=== PATIENT | female | born 1965 | race Caucasian/White ===

== ENCOUNTER 2021-01-11 16:21 | Emergency (ER) | payer MEDICAID ==
[2021-01-11] MEDS ORDERED: Ketorolac Tromethamine 30 MG/ML VIAL ONE (17:06)
== END 2021-01-11 17:30 | disposition home or self-care (01) ==
LOC: ERS 16:21 → EDBD 16:21 → ERS 17:30
DX: M72.2 Plantar fascial fibromatosis (principal); I10 Essential (primary) hypertension; K21.9 Gastro-esophageal reflux disease without esophagitis; Z87.19 Personal history of other diseases of the digestive system; Z79.899 Other long term (current) drug therapy
CPT/HCPCS: 96372; 99283; J1885

== ENCOUNTER 2021-05-04 13:20 | Outpatient (CLI) | payer BC | END 2021-05-04 13:21 | disposition home or self-care (01) | LOC: BICULT 13:20 | PROVIDERS: ATTEND Physician Assistant | DX: E03.9 Hypothyroidism, unspecified (principal); M79.605 Pain in left leg; E04.1 Nontoxic single thyroid nodule | CPT/HCPCS: 76536 ==

== ENCOUNTER 2021-05-23 02:57 | Inpatient (IN) | payer BC ==
[2021-05-23] MEDS ORDERED: Norepinephrine 8 MG/0.9% NS 250 ML IVPB PRN (03:54)
[2021-05-23] MEDS ORDERED: Enoxaparin Sodium 40 MG/0.4 ML SYRINGE SC SCH (04:15)
[2021-05-23] MEDS: Sodium Bicarbonate 150 MEQ in Dextrose 5% in Water 1,000 ML IV SCH ×2 (04:17→17:09)
[2021-05-23 04:50] LABS: Hemoglobin 10.5 g/dL (12.0-16.0); Mean Corpuscular HGB CONC 32.7 g/dL (32.0-36.0); Mean Corpuscular Hemoglobin 31.9 pg (27.0-31.0); Mean Corpuscular Volume 97.8 fL (78.0-98.0); RBC Distribution Width 11.7 % (11.5-14.5); Red Blood Cell (RBC) Count 3.29 mill/uL (4.20-5.40); White Blood Cell (WBC) Count 24.3 thou/uL (4.8-10.8)
[2021-05-23 05:04] LABS: ALT (SGPT) 192 U/L (8-55); AST (SGOT) 574 U/L (5-34); Albumin 2.5 g/dL (3.5-5.0); Alkaline Phosphatase 70 U/L (40-110); Anion Gap 14 mmol/L (10-20); BUN (Urea Nitrogen) 40 mg/dL (9.8-20.1); Bilirubin, Total 0.4 mg/dL (0.2-1.2); Calc. Creatinine Clearance 34 mL/min (70-130); Carbon Dioxide 15 mmol/L (22-29); Chloride 112 mmol/L (98-107); Globulin 2.1 g/dL (2.4-3.5); Glucose 130 mg/dL (70-105); Potassium 4.5 mmol/L (3.5-5.1); Protein, Total 4.6 g/dL (6.0-8.3); Sodium 136 mmol/L (136-145)
[2021-05-23 05:06] LABS: Band 17 % (5-11); Lymphocytes 2 % (21-51); MDiff Complete? YES; Mean Platelet Volume 7.8 fL (7.4-10.4); Neutrophil 81 % (42-75); Platelet Count 103 thou/uL (130-400); Platelet Morphology Comment Appears Decreased
[2021-05-23 05:18] LABS: Calcium 4.6 mg/dL (7.8-10.44)
[2021-05-23] MEDS ORDERED: Calcium Gluc 4.6 MEQ/10 ML (100 MG/ML) SLOW IVP SCH (05:45)
[2021-05-23 06:37] LABS: SARS-CoV-2 NAA Rapid Test Not Detected (NotDetected)
[2021-05-23] MEDS ORDERED: Fentanyl 100 MCG/2 ML VIAL SLOW IVP PRN (08:06)
[2021-05-23] MEDS ORDERED: Lactated Ringer's 1,000 ML IV SCH ×2 (08:15→13:00)
[2021-05-23] MEDS ORDERED: Vancomycin HCl 1.5 GM in Premix Bag 1 BAG IVPB SCH (08:15)
[2021-05-23] MEDS ORDERED: Pantoprazole 40 MG VIAL IVP SCH (09:00)
[2021-05-23] MEDS: Fentanyl 100 MCG/2 ML VIAL SLOW IVP PRN ×4 (09:01→22:12)
[2021-05-23 09:13] LABS: Vancomycin, Random 18.2 ug/mL (See Comment)
[2021-05-23] MEDS: Ondansetron PF 4 MG/2 ML Vial IVP PRN ×2 (09:39→20:31)
[2021-05-23] MEDS: Meropenem 500 MG in Sodium Chloride 0.9% 100 ML IVPB SCH ×2 (09:45→20:41)
[2021-05-23 10:01] LABS: Anion Gap 15 mmol/L (10-20); BUN (Urea Nitrogen) 39 mg/dL (9.8-20.1); Calc. Creatinine Clearance 36 mL/min (70-130); Carbon Dioxide 15 mmol/L (22-29); Chloride 112 mmol/L (98-107); Glucose 106 mg/dL (70-105); Potassium 4.5 mmol/L (3.5-5.1); Sodium 137 mmol/L (136-145)
[2021-05-23 10:16] LABS: Calcium 4.8 mg/dL (7.8-10.44)
[2021-05-23] MEDS ORDERED: Lorazepam 2 MG/ML VIAL IM PRN (10:40)
[2021-05-23] MEDS ORDERED: Electrolyte Replacement Protocol 1 EACH FS SCH (10:45)
[2021-05-23] MEDS ORDERED: Electrolyte Replacement Protocol FS PRN (11:45)
[2021-05-23] MEDS: Thiamine HCl 200 MG/2 ML VIAL SLOW IVP SCH (12:59)
[2021-05-23] MEDS: Lorazepam 1 MG TAB PO PRN ×2 (16:57→23:52)
[2021-05-23] MEDS: Heparin 5,000 UNITS/ML VIAL SC SCH (20:35)
[2021-05-23 23:37] LABS: Vancomycin, Random 12.7 ug/mL (See Comment)
[2021-05-24] MEDS ORDERED: Vancomycin 1 GM in Premix Bag 1 BAG IVPB SCH (01:00)
[2021-05-24] MEDS: Sodium Bicarbonate 150 MEQ in Dextrose 5% in Water 1,000 ML IV SCH (03:30)
[2021-05-24 05:13] LABS: #Eosinphils 0.2 thou/uL (0.0-0.7); #Lymphocytes 1.8 thou/uL (1.20-3.40); #Monocytes 0.7 thou/uL (0.11-0.59); #Neutrophils 13.5 thou/uL (1.40-6.50); %Eosinophils 1.3 % (0.0-10.0); %Lymphocytes 10.9 % (21.0-51.0); %Monocytes 4.1 % (0.0-10.0); %Neutrophils 83.8 % (42.0-75.0); Hemoglobin 9.5 g/dL (12.0-16.0); Mean Corpuscular HGB CONC 32.5 g/dL (32.0-36.0); Mean Corpuscular Hemoglobin 31.4 pg (27.0-31.0); Mean Corpuscular Volume 96.5 fL (78.0-98.0); Mean Platelet Volume 8.3 fL (7.4-10.4); Platelet Count 85 thou/uL (130-400); RBC Distribution Width 11.9 % (11.5-14.5); Red Blood Cell (RBC) Count 3.02 mill/uL (4.20-5.40); White Blood Cell (WBC) Count 16.1 thou/uL (4.8-10.8)
[2021-05-24] MEDS: Fentanyl 100 MCG/2 ML VIAL SLOW IVP PRN ×3 (05:30→16:15)
[2021-05-24 05:35] LABS: ALT (SGPT) 106 U/L (8-55); AST (SGOT) 125 U/L (5-34); Albumin 2.4 g/dL (3.5-5.0); Alkaline Phosphatase 67 U/L (40-110); Anion Gap 11 mmol/L (10-20); BUN (Urea Nitrogen) 32 mg/dL (9.8-20.1); Bilirubin, Total 0.5 mg/dL (0.2-1.2); Calc. Creatinine Clearance 51 mL/min (70-130); Carbon Dioxide 23 mmol/L (22-29); Chloride 107 mmol/L (98-107); Globulin 2.2 g/dL (2.4-3.5); Glucose 146 mg/dL (70-105); Potassium 3.3 mmol/L (3.5-5.1); Protein, Total 4.6 g/dL (6.0-8.3); Sodium 138 mmol/L (136-145)
[2021-05-24 05:39] LABS: Calcium 4.8 mg/dL (7.8-10.44)
[2021-05-24] MEDS ORDERED: Calcium Gluc 4.6 MEQ/10 ML (100 MG/ML) SLOW IVP SCH (07:00)
[2021-05-24 08:06] LABS: Acetaminophen Less than 6.0 mcg/mL (10.0-30.0); Alcohol Less than 10 mg/dL (Less than 10); Salicylate Less than 8.0 mg/dL (15.0-30.0)
[2021-05-24] MEDS: Cholecalciferol (Vitamin D3) 400 UNITS TAB PO SCH (08:26)
[2021-05-24] MEDS: Meropenem 500 MG in Sodium Chloride 0.9% 100 ML IVPB SCH (08:26)
[2021-05-24] MEDS: Heparin 5,000 UNITS/ML VIAL SC SCH ×2 (08:26→21:59)
[2021-05-24] MEDS: Folic Acid 1 MG TAB PO SCH (08:26)
[2021-05-24] MEDS: Multivit, Therapeutic 1 TAB PO SCH (08:26)
[2021-05-24] MEDS: Thiamine HCl 200 MG/2 ML VIAL SLOW IVP SCH (08:28)
[2021-05-24] MEDS ORDERED: Pantoprazole 40 MG VIAL IVP SCH (09:00)
[2021-05-24] MEDS: Ondansetron PF 4 MG/2 ML Vial IVP PRN ×2 (09:05→13:59)
[2021-05-24 10:24] LABS: Amphetamine Not Detected (NotDetected); Barbiturates Screen Not Detected (NotDetected); Benzodiazepine Screen Detected (NotDetected); Cocaine Metabolite Screen Not Detected (NotDetected); Methadone Not Detected (NotDetected); Methamphetamine Not Detected (NotDetected); Opiate Screen Detected (NotDetected); Oxycodone Screen Not Detected (NotDetected); Phencyclidine (PCP) Not Detected (NotDetected); THC/Cannabinoid Screen Not Detected (NotDetected); Tricyclic Screen Not Detected (NotDetected)
[2021-05-24] MEDS: Lorazepam 1 MG TAB PO PRN (14:10)
[2021-05-24] MEDS: Dextrose 5 %-0.45 % NaCl 1,000 ML IV SCH (16:17)
[2021-05-24] MEDS: Meropenem 1 GM in Sodium Chloride 0.9% 100 ML IVPB SCH (21:22)
[2021-05-25 00:48] LABS: Vancomycin, Random 13.1 ug/mL (See Comment)
[2021-05-25] MEDS: Dextrose 5 %-0.45 % NaCl 1,000 ML IV SCH ×3 (01:47→21:02)
[2021-05-25] MEDS: Lorazepam 1 MG TAB PO PRN (01:47)
[2021-05-25] MEDS: Vancomycin 1 GM in Premix Bag 1 BAG IVPB SCH (03:27)
[2021-05-25 07:06] LABS: Hemoglobin 8.8 g/dL (12.0-16.0); Mean Corpuscular HGB CONC 33.1 g/dL (32.0-36.0); Mean Corpuscular Hemoglobin 31.6 pg (27.0-31.0); Mean Corpuscular Volume 95.4 fL (78.0-98.0); Mean Platelet Volume 8.5 fL (7.4-10.4); Platelet Count 92 thou/uL (130-400); RBC Distribution Width 11.8 % (11.5-14.5); Red Blood Cell (RBC) Count 2.79 mill/uL (4.20-5.40); White Blood Cell (WBC) Count 9.8 thou/uL (4.8-10.8)
[2021-05-25 07:20] LABS: ALT (SGPT) 71 U/L (8-55); AST (SGOT) 69 U/L (5-34); Albumin 2.3 g/dL (3.5-5.0); Alkaline Phosphatase 79 U/L (40-110); Anion Gap 9 mmol/L (10-20); BUN (Urea Nitrogen) 21 mg/dL (9.8-20.1); Bilirubin, Total 0.5 mg/dL (0.2-1.2); Calc. Creatinine Clearance 77 mL/min (70-130); Carbon Dioxide 26 mmol/L (22-29); Chloride 108 mmol/L (98-107); Globulin 2.1 g/dL (2.4-3.5); Glucose 100 mg/dL (70-105); Protein, Total 4.4 g/dL (6.0-8.3); Sodium 140 mmol/L (136-145)
[2021-05-25 07:33] LABS: Calcium 4.9 mg/dL (7.8-10.44); Potassium 2.8 mmol/L (3.5-5.1)
[2021-05-25 09:39] LABS: Band 12 % (5-11); Eosinophils 1 % (0-10); Lymphocytes 20 % (21-51); MDiff Complete? YES; Monocytes 3 % (0-10); Neutrophil 64 % (42-75); Platelet Morphology Comment Appears Decreased; Polychromasia SLIGHT = 2-3 cells (100X) (0-2/hpf)
[2021-05-25] MEDS: Cholecalciferol (Vitamin D3) 400 UNITS TAB PO SCH (09:46)
[2021-05-25] MEDS: Folic Acid 1 MG TAB PO SCH (09:46)
[2021-05-25] MEDS: Meropenem 1 GM in Sodium Chloride 0.9% 100 ML IVPB SCH ×2 (09:46→17:18)
[2021-05-25] MEDS: Multivit, Therapeutic 1 TAB PO SCH (09:46)
[2021-05-25] MEDS: Heparin 5,000 UNITS/ML VIAL SC SCH ×2 (10:36→21:02)
[2021-05-25] MEDS ORDERED: Lorazepam 1 MG TAB PO PRN (10:40)
[2021-05-25] MEDS: Fentanyl 100 MCG/2 ML VIAL SLOW IVP PRN ×2 (10:44→17:19)
[2021-05-25] MEDS ORDERED: Potassium Chloride 40 MEQ in Sodium Chloride 0.9% 250 ML 250 ML IVPB SCH (12:00)
[2021-05-25] MEDS: Thiamine HCl 200 MG/2 ML VIAL SLOW IVP SCH (12:10)
[2021-05-25] MEDS ORDERED: Calcium Gluconate 4.6 MEQ in Sodium Chloride 0.9% 100 ML IVPB SCH (13:14)
[2021-05-25] MEDS: Ondansetron PF 4 MG/2 ML Vial IVP PRN (14:29)
[2021-05-25] MEDS: Potassium Chloride 20 MEQ TAB PO SCH ×2 (14:30→21:02)
[2021-05-26] MEDS: Potassium Chloride 20 MEQ TAB PO SCH (00:20)
[2021-05-26] MEDS: Meropenem 1 GM in Sodium Chloride 0.9% 100 ML IVPB SCH ×3 (00:20→16:49)
[2021-05-26] MEDS: Vancomycin 1 GM in Premix Bag 1 BAG IVPB SCH (02:53)
[2021-05-26] MEDS: Fentanyl 100 MCG/2 ML VIAL SLOW IVP PRN ×2 (04:03→18:43)
[2021-05-26 06:08] LABS: Phosphorus 1.2 mg/dL (2.3-4.7)
[2021-05-26 06:10] LABS: Mean Corpuscular HGB CONC 33.6 g/dL (32.0-36.0); Mean Corpuscular Hemoglobin 32.3 pg (27.0-31.0); Mean Corpuscular Volume 96.2 fL (78.0-98.0); Mean Platelet Volume 7.9 fL (7.4-10.4); Platelet Count 105 thou/uL (130-400); RBC Distribution Width 11.9 % (11.5-14.5); Red Blood Cell (RBC) Count 2.79 mill/uL (4.20-5.40); White Blood Cell (WBC) Count 6.8 thou/uL (4.8-10.8)
[2021-05-26 06:14] LABS: ALT (SGPT) 65 U/L (8-55); AST (SGOT) 77 U/L (5-34); Albumin 2.3 g/dL (3.5-5.0); Alkaline Phosphatase 101 U/L (40-110); Anion Gap 9 mmol/L (10-20); BUN (Urea Nitrogen) 13 mg/dL (9.8-20.1); Bilirubin, Total 0.7 mg/dL (0.2-1.2); Calc. Creatinine Clearance 93 mL/min (70-130); Carbon Dioxide 26 mmol/L (22-29); Chloride 109 mmol/L (98-107); Globulin 2.1 g/dL (2.4-3.5); Glucose 110 mg/dL (70-105); Magnesium 1.4 mg/dL (1.6-2.6); Potassium 3.6 mmol/L (3.5-5.1); Protein, Total 4.4 g/dL (6.0-8.3); Sodium 140 mmol/L (136-145)
[2021-05-26 06:19] LABS: Calcium 5.4 mg/dL (7.8-10.44)
[2021-05-26] MEDS ORDERED: Electrolyte Replacement Protocol FS PRN (07:00)
[2021-05-26] MEDS ORDERED: Magnesium Sulfate 4 GM in Sodium Chloride 0.9% 250 ML 250 ML IVPB SCH (08:00)
[2021-05-26] MEDS: Multivit, Therapeutic 1 TAB PO SCH (08:52)
[2021-05-26] MEDS: PHOS-NAK 1 PKT PACK PO SCH ×4 (08:52→20:50)
[2021-05-26] MEDS: Dextrose 5 %-0.45 % NaCl 1,000 ML IV SCH ×2 (08:52→16:07)
[2021-05-26] MEDS: Folic Acid 1 MG TAB PO SCH (08:52)
[2021-05-26] MEDS: Heparin 5,000 UNITS/ML VIAL SC SCH ×2 (08:53→20:50)
[2021-05-26] MEDS: Cholecalciferol (Vitamin D3) 400 UNITS TAB PO SCH (08:53)
[2021-05-26] MEDS: Thiamine 100 MG TAB PO SCH (10:13)
[2021-05-26] MEDS ORDERED: Lorazepam 0.5 MG TAB PO PRN (10:40)
[2021-05-26] MEDS: Acetaminophen 325 MG TAB PO PRN (12:19)
[2021-05-26 12:43] LABS: Band 15 % (5-11); Lymphocytes 18 % (21-51); Monocytes 10 % (0-10); Neutrophil 57 % (42-75)
[2021-05-26 12:44] LABS: Platelet Morphology Comment Appears Decreased; Polychromasia SLIGHT = 2-3 cells (100X) (0-2/hpf)
[2021-05-26 12:45] LABS: MDiff Complete? YES
[2021-05-27] MEDS: Dextrose 5 %-0.45 % NaCl 1,000 ML IV SCH ×4 (00:51→22:51)
[2021-05-27] MEDS: Meropenem 1 GM in Sodium Chloride 0.9% 100 ML IVPB SCH ×3 (00:51→17:03)
[2021-05-27] MEDS: Fentanyl 100 MCG/2 ML VIAL SLOW IVP PRN ×6 (01:08→23:48)
[2021-05-27 03:18] LABS: Vancomycin, Trough 10.2 ug/mL
[2021-05-27] MEDS: Vancomycin 1 GM in Premix Bag 1 BAG IVPB SCH (03:46)
[2021-05-27] MEDS: Ondansetron PF 4 MG/2 ML Vial IVP PRN (03:56)
[2021-05-27] MEDS: Vancomycin HCl 1.5 GM in Sodium Chloride 0.9% 250 ML 300 ML IVPB SCH (03:59)
[2021-05-27] MEDS: Levothyroxine Sodium 50 MCG TAB PO SCH (05:40)
[2021-05-27 06:05] VITALS: BMI 45.5
[2021-05-27] MEDS: Cholecalciferol (Vitamin D3) 400 UNITS TAB PO SCH (09:14)
[2021-05-27] MEDS: Allopurinol 100 MG TAB PO SCH (09:14)
[2021-05-27] MEDS: Multivit, Therapeutic 1 TAB PO SCH (09:14)
[2021-05-27] MEDS: Heparin 5,000 UNITS/ML VIAL SC SCH ×2 (09:14→20:39)
[2021-05-27] MEDS: Folic Acid 1 MG TAB PO SCH (09:14)
[2021-05-27] MEDS: Thiamine 100 MG TAB PO SCH (09:17)
[2021-05-27 11:28] LABS: ALT (SGPT) 71 U/L (8-55); AST (SGOT) 86 U/L (5-34); Albumin 2.7 g/dL (3.5-5.0); Alkaline Phosphatase 130 U/L (40-110); Anion Gap 10 mmol/L (10-20); BUN (Urea Nitrogen) 8 mg/dL (9.8-20.1); Bilirubin, Total 0.8 mg/dL (0.2-1.2); Calc. Creatinine Clearance 121 mL/min (70-130); Calcium 6.3 mg/dL (7.8-10.44); Carbon Dioxide 20 mmol/L (22-29); Chloride 113 mmol/L (98-107); Globulin 2.1 g/dL (2.4-3.5); Glucose 119 mg/dL (70-105); Potassium 4.2 mmol/L (3.5-5.1); Protein, Total 4.8 g/dL (6.0-8.3); Sodium 139 mmol/L (136-145)
[2021-05-28] MEDS: Meropenem 1 GM in Sodium Chloride 0.9% 100 ML IVPB SCH ×2 (01:06→09:47)
[2021-05-28] MEDS: Fentanyl 100 MCG/2 ML VIAL SLOW IVP PRN ×4 (04:07→23:45)
[2021-05-28] MEDS: Vancomycin HCl 1.5 GM in Sodium Chloride 0.9% 250 ML 300 ML IVPB SCH (04:07)
[2021-05-28] MEDS: Levothyroxine Sodium 50 MCG TAB PO SCH (05:19)
[2021-05-28 06:58] LABS: #Eosinphils 0.2 thou/uL (0.0-0.7); #Monocytes 0.5 thou/uL (0.11-0.59); #Neutrophils 5.5 thou/uL (1.40-6.50); %Basophils 0.4 % (0.0-1.0); %Lymphocytes 24.2 % (21.0-51.0); %Neutrophils 67.5 % (42.0-75.0); Hemoglobin 9.6 g/dL (12.0-16.0); Mean Corpuscular Hemoglobin 31.9 pg (27.0-31.0); Mean Corpuscular Volume 96.8 fL (78.0-98.0); Platelet Count 142 thou/uL (130-400); RBC Distribution Width 11.9 % (11.5-14.5); Red Blood Cell (RBC) Count 3.01 mill/uL (4.20-5.40); White Blood Cell (WBC) Count 8.1 thou/uL (4.8-10.8)
[2021-05-28 07:17] LABS: Anion Gap 9 mmol/L (10-20); BUN (Urea Nitrogen) 6 mg/dL (9.8-20.1); Calc. Creatinine Clearance 132 mL/min (70-130); Carbon Dioxide 20 mmol/L (22-29); Chloride 113 mmol/L (98-107); Glucose 100 mg/dL (70-105); Potassium 3.9 mmol/L (3.5-5.1); Sodium 138 mmol/L (136-145)
[2021-05-28] MEDS: Dextrose 5 %-0.45 % NaCl 1,000 ML IV SCH (09:47)
[2021-05-28] MEDS: Allopurinol 100 MG TAB PO SCH (09:48)
[2021-05-28] MEDS: Cholecalciferol (Vitamin D3) 400 UNITS TAB PO SCH (09:48)
[2021-05-28] MEDS: Thiamine 100 MG TAB PO SCH (09:48)
[2021-05-28] MEDS: Heparin 5,000 UNITS/ML VIAL SC SCH ×2 (09:48→19:49)
[2021-05-28] MEDS: Folic Acid 1 MG TAB PO SCH (09:49)
[2021-05-28] MEDS: Multivit, Therapeutic 1 TAB PO SCH (09:49)
[2021-05-29] MEDS: Levothyroxine Sodium 50 MCG TAB PO SCH (05:32)
[2021-05-29] MEDS: Acetaminophen 325 MG TAB PO PRN (05:39)
[2021-05-29] MEDS: Fentanyl 100 MCG/2 ML VIAL SLOW IVP PRN ×2 (05:39→10:41)
[2021-05-29 07:17] LABS: #Eosinphils 0.1 thou/uL (0.0-0.7); #Lymphocytes 1.6 thou/uL (1.20-3.40); #Monocytes 0.3 thou/uL (0.11-0.59); %Basophils 0.2 % (0.0-1.0); %Eosinophils 1.6 % (0.0-10.0); %Lymphocytes 20.1 % (21.0-51.0); %Monocytes 4.2 % (0.0-10.0); %Neutrophils 73.9 % (42.0-75.0); Hemoglobin 9.8 g/dL (12.0-16.0); Mean Corpuscular HGB CONC 33.2 g/dL (32.0-36.0); Mean Corpuscular Hemoglobin 32.3 pg (27.0-31.0); Mean Corpuscular Volume 97.2 fL (78.0-98.0); Mean Platelet Volume 7.9 fL (7.4-10.4); Platelet Count 154 thou/uL (130-400); RBC Distribution Width 12.1 % (11.5-14.5); Red Blood Cell (RBC) Count 3.04 mill/uL (4.20-5.40); White Blood Cell (WBC) Count 8.2 thou/uL (4.8-10.8)
[2021-05-29 07:34] LABS: Anion Gap 10 mmol/L (10-20); BUN (Urea Nitrogen) 6 mg/dL (9.8-20.1); Calc. Creatinine Clearance 132 mL/min (70-130); Calcium 7.8 mg/dL (7.8-10.44); Carbon Dioxide 20 mmol/L (22-29); Chloride 113 mmol/L (98-107); Glucose 105 mg/dL (70-105); Potassium 3.9 mmol/L (3.5-5.1); Sodium 139 mmol/L (136-145)
[2021-05-29 08:19] VITALS: BP 138/86; TEMP 97.9
[2021-05-29] MEDS: Folic Acid 1 MG TAB PO SCH (10:32)
[2021-05-29] MEDS: Cholecalciferol (Vitamin D3) 400 UNITS TAB PO SCH (10:32)
[2021-05-29] MEDS: Multivit, Therapeutic 1 TAB PO SCH (10:32)
[2021-05-29] MEDS: Allopurinol 100 MG TAB PO SCH (10:32)
[2021-05-29] MEDS: Heparin 5,000 UNITS/ML VIAL SC SCH (10:32)
[2021-05-29] MEDS: Thiamine 100 MG TAB PO SCH (10:44)
== END 2021-05-29 14:50 | disposition home or self-care (01) | DRG 871 ==
LOC: CCU 03:47 → SURG A 16:04
PROVIDERS: ADMIT Internal Medicine; ATTEND Internal Medicine
DX: A41.9 Sepsis, unspecified organism (principal); J96.01 Acute respiratory failure with hypoxia; R65.21 Severe sepsis with septic shock; K85.20 Alcohol induced acute pancreatitis without necrosis or infection; N17.9 Acute kidney failure, unspecified; Z68.42 Body mass index [BMI] 45.0-49.9, adult; N25.81 Secondary hyperparathyroidism of renal origin; Z20.822 Contact with and (suspected) exposure to COVID-19; M10.9 Gout, unspecified; K21.9 Gastro-esophageal reflux disease without esophagitis; E03.9 Hypothyroidism, unspecified; F10.10 Alcohol abuse, uncomplicated; E83.51 Hypocalcemia; I12.9 Hypertensive chronic kidney disease with stage 1 through stage 4 chronic kidney disease, or unspecified chronic kidney disease; N18.9 Chronic kidney disease, unspecified; D63.1 Anemia in chronic kidney disease; E66.01 Morbid (severe) obesity due to excess calories; N18.30 Chronic kidney disease, stage 3 unspecified; D69.6 Thrombocytopenia, unspecified; E87.6 Hypokalemia; Z88.0 Allergy status to penicillin; Z88.5 Allergy status to narcotic agent; Z90.710 Acquired absence of both cervix and uterus; Z79.890 Hormone replacement therapy; Z79.899 Other long term (current) drug therapy
CPT/HCPCS: 36415; 36416; 71045; 80048; 80053; 80061; 80202; 80306; 80307; 82306; 83690; 83735; 83970; 84100; 85025; 87040; 87086; 93005; 93010; 94640; C9113; J0610; J1644; J1650; J2060; J2185; J2405; J3010; J3370; J3411; J3475; J3480; J3490; J7042; J7050; J7070; J7120; J7620; U0002

== ENCOUNTER 2021-09-02 16:15 | Inpatient (IN) | payer BC ==
[2021-09-02 16:56] LABS: #Eosinphils 0.1 thou/uL (0.0-0.7); #Lymphocytes 2.4 thou/uL (1.20-3.40); #Monocytes 0.4 thou/uL (0.11-0.59); #Neutrophils 9.3 thou/uL (1.40-6.50); %Basophils 0.3 % (0.0-1.0); %Lymphocytes 19.3 % (21.0-51.0); %Monocytes 3.4 % (0.0-10.0); Hemoglobin 10.5 g/dL (12.0-16.0); Mean Corpuscular HGB CONC 32.9 g/dL (32.0-36.0); Mean Corpuscular Hemoglobin 30.3 pg (27.0-31.0); Mean Corpuscular Volume 92.2 fL (78.0-98.0); Mean Platelet Volume 7.2 fL (7.4-10.4); Platelet Count 259 thou/uL (130-400); RBC Distribution Width 11.5 % (11.5-14.5); Red Blood Cell (RBC) Count 3.47 mill/uL (4.20-5.40); White Blood Cell (WBC) Count 12.3 thou/uL (4.8-10.8)
[2021-09-02 17:25] LABS: ALT (SGPT) 22 U/L (8-55); AST (SGOT) 30 U/L (5-34); Albumin 4.3 g/dL (3.5-5.0); Alkaline Phosphatase 166 U/L (40-110); Anion Gap 18 mmol/L (10-20); BUN (Urea Nitrogen) 34 mg/dL (9.8-20.1); Bilirubin, Total 0.4 mg/dL (0.2-1.2); Calc. Creatinine Clearance 0 mL/min (70-130); Calcium 10.7 mg/dL (7.8-10.44); Carbon Dioxide 24 mmol/L (22-29); Chloride 101 mmol/L (98-107); Globulin 3.4 g/dL (2.4-3.5); Glucose 133 mg/dL (70-105); Lipase 63 U/L (8-78); Potassium 3.8 mmol/L (3.5-5.1); Protein, Total 7.7 g/dL (6.0-8.3); Sodium 139 mmol/L (136-145)
[2021-09-02] MEDS ORDERED: Vancomycin 1 GM/200 ML BAG ONE (18:09)
[2021-09-02] MEDS ORDERED: Cefepime 2 GM VIAL ONE (18:09)
[2021-09-02] MEDS ORDERED: Ondansetron PF 4 MG/2 ML Vial ONE (18:41)
[2021-09-02 20:21] VITALS: BMI 32.9
[2021-09-02] MEDS ORDERED: Ondansetron ODT 4 MG TAB PO PRN (21:23)
[2021-09-02] MEDS ORDERED: Ondansetron PF 4 MG/2 ML Vial IVP PRN (21:23)
[2021-09-02] MEDS ORDERED: Acetaminophen 650 MG Suppository PR PRN (21:23)
[2021-09-02] MEDS: Sodium Chloride 0.9% 1,000 ML IV SCH (21:57)
[2021-09-03] MEDS ORDERED: Sodium Chloride 0.9% 500 ML IV SCH (03:00)
[2021-09-03] MEDS: Acetaminophen 325 MG TAB PO PRN (05:19)
[2021-09-03 05:57] LABS: Bacteria/HPF Rare-Few HPF (None Seen); Bilirubin Negative (Negative); Blood, Urine Negative (Negative); Clarity Clear (Clear); Glucose, Urine (Dipstick) Normal (Negative); Ketone, Urine Negative (Negative); Leukocyte Negative Leu/uL (Negative); Nitrite Negative (Negative); Protein, Urine (Dipstick) Negative (Neg-Trace); RBC/HPF 0-3 HPF (0-3); Specific Gravity, Urine 1.007 (1.002-1.036); Squamous Epithelial 0-3 HPF (0-3); Urobilinogen Normal mg/dL (Less than 2); WBC/HPF 0-3 HPF (0-3); pH, Urine 5.5 (5.0-9.0)
[2021-09-03 05:58] LABS: Urine Culture Reflex No No
[2021-09-03] MEDS ORDERED: Cefepime 2 GM in Sodium Chloride 0.9% 100 ML IVPB SCH (06:00)
[2021-09-03] MEDS: Sodium Chloride 0.9% 1,000 ML IV SCH (06:33)
[2021-09-03 07:20] LABS: #Eosinphils 0.1 thou/uL (0.0-0.7); #Lymphocytes 1.7 thou/uL (1.20-3.40); #Monocytes 0.5 thou/uL (0.11-0.59); #Neutrophils 8.7 thou/uL (1.40-6.50); %Basophils 0.1 % (0.0-1.0); %Eosinophils 1.2 % (0.0-10.0); %Lymphocytes 15.6 % (21.0-51.0); %Monocytes 4.2 % (0.0-10.0); %Neutrophils 78.9 % (42.0-75.0); Hemoglobin 8.8 g/dL (12.0-16.0); Mean Corpuscular HGB CONC 33.8 g/dL (32.0-36.0); Mean Corpuscular Hemoglobin 31.7 pg (27.0-31.0); Mean Corpuscular Volume 93.7 fL (78.0-98.0); Mean Platelet Volume 7.3 fL (7.4-10.4); Platelet Count 208 thou/uL (130-400); RBC Distribution Width 11.3 % (11.5-14.5); Red Blood Cell (RBC) Count 2.79 mill/uL (4.20-5.40)
[2021-09-03] MEDS ORDERED: Lorazepam 1 MG TAB PO PRN (08:50)
[2021-09-03] MEDS ORDERED: Lorazepam 2 MG/ML VIAL IM PRN (08:50)
[2021-09-03] MEDS ORDERED: Ondansetron ODT 4 MG TAB PO PRN (08:50)
[2021-09-03] MEDS ORDERED: Electrolyte Replacement Protocol 1 EACH FS SCH (09:00)
[2021-09-03] MEDS: Zinc Sulfate 220 MG CAP PO SCH (09:10)
[2021-09-03] MEDS: Ascorbic Acid 500 mg Chewable Tablet PO SCH (09:10)
[2021-09-03] MEDS: Thiamine HCl 200 MG/2 ML VIAL SLOW IVP SCH (09:16)
[2021-09-03] MEDS: Folic Acid 1 MG TAB PO SCH (09:16)
[2021-09-03] MEDS: Multivit, Therapeutic 1 TAB PO SCH (09:16)
[2021-09-03] MEDS: Enoxaparin Sodium 30 MG/0.3 ML SYRINGE SC SCH (09:22)
[2021-09-03 09:28] LABS: #Eosinphils 0.1 thou/uL (0.0-0.7); #Lymphocytes 1.6 thou/uL (1.20-3.40); #Monocytes 0.4 thou/uL (0.11-0.59); %Basophils 0.1 % (0.0-1.0); %Eosinophils 1.2 % (0.0-10.0); %Lymphocytes 14.3 % (21.0-51.0); %Monocytes 3.8 % (0.0-10.0); %Neutrophils 80.6 % (42.0-75.0); Hemoglobin 9.3 g/dL (12.0-16.0); Mean Corpuscular HGB CONC 32.4 g/dL (32.0-36.0); Mean Corpuscular Hemoglobin 30.4 pg (27.0-31.0); Mean Corpuscular Volume 93.7 fL (78.0-98.0); Mean Platelet Volume 7.2 fL (7.4-10.4); Platelet Count 230 thou/uL (130-400); RBC Distribution Width 11.3 % (11.5-14.5); Red Blood Cell (RBC) Count 3.06 mill/uL (4.20-5.40); White Blood Cell (WBC) Count 11.2 thou/uL (4.8-10.8)
[2021-09-03 09:51] LABS: ALT (SGPT) 27 U/L (8-55); AST (SGOT) 36 U/L (5-34); Albumin 3.6 g/dL (3.5-5.0); Alcohol Less than 10 mg/dL (Less than 10); Alkaline Phosphatase 163 U/L (40-110); Anion Gap 14 mmol/L (10-20); BUN (Urea Nitrogen) 27 mg/dL (9.8-20.1); Bilirubin, Total 0.3 mg/dL (0.2-1.2); Calc. Creatinine Clearance 41 mL/min (70-130); Calcium 9.1 mg/dL (7.8-10.44); Carbon Dioxide 23 mmol/L (22-29); Chloride 109 mmol/L (98-107); Gamma GT (GGT) 368 U/L (9-36); Glucose 118 mg/dL (70-105); Iron 17 ug/dL (50-170); Iron Binding Capacity, Total 269 mcg/dL (265-497); Magnesium 1.6 mg/dL (1.6-2.6); Phosphorus 3.6 mg/dL (2.3-4.7); Potassium 4.8 mmol/L (3.5-5.1); Protein, Total 6.6 g/dL (6.0-8.3); Sodium 141 mmol/L (136-145)
[2021-09-03] MEDS: Cholecalciferol (Vitamin D3) 400 UNITS TAB PO SCH (09:57)
[2021-09-03 10:09] LABS: Free T4 (Free Thyroxine) 0.66 ng/dL (0.70-1.48); Thyroid Stimulating Hormone 1.6827 uIU/mL (0.35-4.94)
[2021-09-03] MEDS ORDERED: Magnesium 2 GM/50 ML(in water) 2 GM in Premix Bag 1 BAG IVPB SCH (10:15)
[2021-09-03 11:15] LABS: Amphetamine Not Detected (NotDetected); Barbiturates Screen Not Detected (NotDetected); Benzodiazepine Screen Detected (NotDetected); Cocaine Metabolite Screen Not Detected (NotDetected); Methadone Not Detected (NotDetected); Methamphetamine Not Detected (NotDetected); Opiate Screen Not Detected (NotDetected); Oxycodone Screen Not Detected (NotDetected); Phencyclidine (PCP) Not Detected (NotDetected); THC/Cannabinoid Screen Detected (NotDetected); Tricyclic Screen Detected (NotDetected)
[2021-09-03] MEDS: cefTRIAXone\\ROCEPHIN 1 GM in Sodium Chloride 0.9% 100 ML IVPB SCH (11:19)
[2021-09-03] MEDS: Lactated Ringer's 1,000 ML IV SCH (11:19)
[2021-09-03 13:30] LABS: Syphilis Antibody Nonreactive (Nonreactive); Syphilis Antibody Index 0.12 S/CO (<1.00 Non-Reactive)
[2021-09-03] MEDS ORDERED: Cosyntropin 250 MCG VIAL SLOW IVP SCH (14:15)
[2021-09-03] MEDS: Lorazepam 1 MG TAB PO PRN (17:16)
[2021-09-03] MEDS: Gabapentin 100 MG CAP PO SCH (21:03)
[2021-09-04] MEDS: Lactated Ringer's 1,000 ML IV SCH (06:26)
[2021-09-04] MEDS: Levothyroxine Sodium 88 MCG TAB PO SCH (06:26)
[2021-09-04 07:59] LABS: #Eosinphils 0.1 thou/uL (0.0-0.7); #Lymphocytes 1.7 thou/uL (1.20-3.40); #Monocytes 0.3 thou/uL (0.11-0.59); #Neutrophils 6.5 thou/uL (1.40-6.50); %Basophils 0.5 % (0.0-1.0); %Eosinophils 1.2 % (0.0-10.0); %Monocytes 3.7 % (0.0-10.0); %Neutrophils 74.6 % (42.0-75.0); Hemoglobin 9.1 g/dL (12.0-16.0); Mean Corpuscular HGB CONC 33.7 g/dL (32.0-36.0); Mean Corpuscular Hemoglobin 31.1 pg (27.0-31.0); Mean Corpuscular Volume 92.5 fL (78.0-98.0); Mean Platelet Volume 6.7 fL (7.4-10.4); Platelet Count 189 thou/uL (130-400); RBC Distribution Width 11.2 % (11.5-14.5); Red Blood Cell (RBC) Count 2.91 mill/uL (4.20-5.40); White Blood Cell (WBC) Count 8.7 thou/uL (4.8-10.8)
[2021-09-04 08:18] LABS: Anion Gap 12 mmol/L (10-20); BUN (Urea Nitrogen) 17 mg/dL (9.8-20.1); Calc. Creatinine Clearance 54 mL/min (70-130); Carbon Dioxide 24 mmol/L (22-29); Chloride 107 mmol/L (98-107); Glucose 116 mg/dL (70-105); Potassium 4.1 mmol/L (3.5-5.1); Sodium 139 mmol/L (136-145)
[2021-09-04] MEDS: Gabapentin 100 MG CAP PO SCH ×2 (08:38→21:18)
[2021-09-04] MEDS: Folic Acid 1 MG TAB PO SCH (08:38)
[2021-09-04] MEDS: Multivit, Therapeutic 1 TAB PO SCH (08:38)
[2021-09-04] MEDS: Enoxaparin Sodium 30 MG/0.3 ML SYRINGE SC SCH (08:39)
[2021-09-04] MEDS: Cholecalciferol (Vitamin D3) 400 UNITS TAB PO SCH (08:39)
[2021-09-04] MEDS: Ascorbic Acid 500 mg Chewable Tablet PO SCH (08:39)
[2021-09-04] MEDS: Zinc Sulfate 220 MG CAP PO SCH (08:39)
[2021-09-04] MEDS ORDERED: Lorazepam 1 MG TAB PO PRN (08:50)
[2021-09-04] MEDS: Thiamine HCl 200 MG/2 ML VIAL SLOW IVP SCH (10:17)
[2021-09-04] MEDS: Lorazepam 1 MG TAB PO PRN (10:18)
[2021-09-04] MEDS: cefTRIAXone\\ROCEPHIN 1 GM in Sodium Chloride 0.9% 100 ML IVPB SCH (10:19)
[2021-09-04] MEDS ORDERED: Cosyntropin 250 MCG VIAL SLOW IVP SCH (16:00)
[2021-09-05] MEDS: Lactated Ringer's 1,000 ML IV SCH (03:28)
[2021-09-05 04:38] LABS: #Eosinphils 0.2 thou/uL (0.0-0.7); #Lymphocytes 1.8 thou/uL (1.20-3.40); #Monocytes 0.4 thou/uL (0.11-0.59); #Neutrophils 6.5 thou/uL (1.40-6.50); %Basophils 0.4 % (0.0-1.0); %Eosinophils 1.9 % (0.0-10.0); %Lymphocytes 19.8 % (21.0-51.0); %Monocytes 4.9 % (0.0-10.0); Hemoglobin 9.6 g/dL (12.0-16.0); Mean Corpuscular Hemoglobin 31.4 pg (27.0-31.0); Mean Corpuscular Volume 92.3 fL (78.0-98.0); Mean Platelet Volume 6.9 fL (7.4-10.4); Platelet Count 206 thou/uL (130-400); RBC Distribution Width 11.2 % (11.5-14.5); Red Blood Cell (RBC) Count 3.06 mill/uL (4.20-5.40)
[2021-09-05 05:01] LABS: ALT (SGPT) 51 U/L (8-55); AST (SGOT) 77 U/L (5-34); Albumin 3.7 g/dL (3.5-5.0); Alkaline Phosphatase 324 U/L (40-110); Anion Gap 15 mmol/L (10-20); BUN (Urea Nitrogen) 13 mg/dL (9.8-20.1); Calc. Creatinine Clearance 64 mL/min (70-130); Calcium 9.3 mg/dL (7.8-10.44); Carbon Dioxide 20 mmol/L (22-29); Chloride 107 mmol/L (98-107); Globulin 3.1 g/dL (2.4-3.5); Glucose 135 mg/dL (70-105); Potassium 4.1 mmol/L (3.5-5.1); Protein, Total 6.8 g/dL (6.0-8.3); Sodium 138 mmol/L (136-145)
[2021-09-05] MEDS: Levothyroxine Sodium 88 MCG TAB PO SCH (05:40)
[2021-09-05] MEDS: Zinc Sulfate 220 MG CAP PO SCH (08:48)
[2021-09-05] MEDS: Cholecalciferol (Vitamin D3) 400 UNITS TAB PO SCH (08:48)
[2021-09-05] MEDS: Folic Acid 1 MG TAB PO SCH (08:48)
[2021-09-05] MEDS: Gabapentin 100 MG CAP PO SCH (08:48)
[2021-09-05] MEDS: Multivit, Therapeutic 1 TAB PO SCH (08:48)
[2021-09-05] MEDS: Ascorbic Acid 500 mg Chewable Tablet PO SCH (08:48)
[2021-09-05] MEDS: Enoxaparin Sodium 30 MG/0.3 ML SYRINGE SC SCH (08:49)
[2021-09-05] MEDS: Thiamine HCl 200 MG/2 ML VIAL SLOW IVP SCH (08:49)
[2021-09-05] MEDS ORDERED: Lorazepam 1 MG TAB PO PRN (08:50)
[2021-09-05] MEDS: cefTRIAXone\\ROCEPHIN 1 GM in Sodium Chloride 0.9% 100 ML IVPB SCH (10:56)
[2021-09-05] MEDS: Acetaminophen 325 MG TAB PO PRN (15:29)
[2021-09-05 16:05] VITALS: BP 122/77; TEMP 98.2
[2021-09-06] MEDS ORDERED: Lorazepam 0.5 MG TAB PO PRN (08:50)
[2021-09-06] MEDS ORDERED: Thiamine 100 MG TAB PO SCH (09:00)
== END 2021-09-05 18:08 | disposition home or self-care (01) | DRG 682 ==
LOC: ERS 16:15 → EEVIPCON 16:15 → T4-A 18:34 → NEURO 09-03 08:16
PROVIDERS: ADMIT Family Medicine; ATTEND Family Medicine
PROC: 8E0ZXY6 Isolation (ICD-10-PCS; principal; 2021-09-02)
DX: N17.9 Acute kidney failure, unspecified (principal); G93.41 Metabolic encephalopathy; U07.1 COVID-19; I95.89 Other hypotension; E86.9 Volume depletion, unspecified; R74.01 Elevation of levels of liver transaminase levels; D50.9 Iron deficiency anemia, unspecified; E03.9 Hypothyroidism, unspecified; K21.9 Gastro-esophageal reflux disease without esophagitis; M10.9 Gout, unspecified; I12.9 Hypertensive chronic kidney disease with stage 1 through stage 4 chronic kidney disease, or unspecified chronic kidney disease; D63.1 Anemia in chronic kidney disease; F19.10 Other psychoactive substance abuse, uncomplicated; F12.10 Cannabis abuse, uncomplicated; F13.10 Sedative, hypnotic or anxiolytic abuse, uncomplicated; D52.9 Folate deficiency anemia, unspecified; N18.30 Chronic kidney disease, stage 3 unspecified; E66.9 Obesity, unspecified; E06.3 Autoimmune thyroiditis; Z28.310 Unvaccinated for COVID-19; Z98.890 Other specified postprocedural states; Z90.710 Acquired absence of both cervix and uterus; Z88.5 Allergy status to narcotic agent; Z88.0 Allergy status to penicillin; Z79.899 Other long term (current) drug therapy; Z79.890 Hormone replacement therapy; Z68.32 Body mass index [BMI] 32.0-32.9, adult
CPT/HCPCS: 36415; 70450; 70551; 71045; 76770; 80048; 80053; 80306; 80307; 80400; 81001; 82024; 82140; 82248; 82533; 82728; 82977; 83540; 83550; 83605; 83690; 83735; 84100; 84145; 84439; 84443; 84481; 85025; 86780; 87040; 87086; 93005; 93010; 96365; 96367; 96375; J0692; J0696; J0834; J1650; J2405; J3370; J3411; J3475; J3490; J7030; J7050; J7120

== ENCOUNTER 2021-10-21 08:23 | Outpatient (CLI) | payer BC | END 2021-10-21 08:24 | disposition home or self-care (01) | LOC: ULT 08:23 | PROVIDERS: ATTEND Physician Assistant Medical | DX: R74.8 Abnormal levels of other serum enzymes (principal); K21.9 Gastro-esophageal reflux disease without esophagitis; K83.8 Other specified diseases of biliary tract; R16.1 Splenomegaly, not elsewhere classified; R93.2 Abnormal findings on diagnostic imaging of liver and biliary tract; Z87.19 Personal history of other diseases of the digestive system | CPT/HCPCS: 76700 ==

== ENCOUNTER 2021-12-24 08:56 | Outpatient (CLI) | payer BC ==
[2021-12-24] MEDS ORDERED: Iopamidol 370 76% 100 ML VIAL ONE (14:36)
== END 2021-12-24 08:57 | disposition home or self-care (01) ==
LOC: CT 08:56
PROVIDERS: ATTEND Internal Medicine
DX: K83.1 Obstruction of bile duct (principal); R93.5 Abnormal findings on diagnostic imaging of other abdominal regions, including retroperitoneum; K83.8 Other specified diseases of biliary tract; K86.89 Other specified diseases of pancreas; I82.890 Acute embolism and thrombosis of other specified veins; I86.8 Varicose veins of other specified sites
CPT/HCPCS: 74177; 82565